=== PATIENT | female | born 1955 | race Caucasian/White ===

== ENCOUNTER → 2023-07-02 09:17 | Outpatient (REF) | payer MEDICARE, SELFPAY | LOC: HWRAD 09:17 | PROVIDERS: ATTENDING PHYSICIAN Family Medicine | DX: I10 Essential (primary) hypertension (principal); I48.0 Paroxysmal atrial fibrillation | CPT/HCPCS: 71046 ==

== ENCOUNTER → 2024-02-17 14:41 | Outpatient (REF) | payer MEDICARE, SELFPAY | LOC: HWEVLT 14:41 | PROVIDERS: ATTENDING PHYSICIAN Radiology Diagnostic Radiology | DX: I83.892 Varicose veins of left lower extremity with other complications (principal) | CPT/HCPCS: 93971 ==

== ENCOUNTER → 2024-03-22 09:40 | Outpatient (REF) | payer MEDICARE, SELFPAY | LOC: HWWDC 09:40 | PROVIDERS: ATTENDING PHYSICIAN Obstetrics & Gynecology; FAMILY PHYSICIAN Family Medicine; REFERRING PHYSICIAN Nurse Practitioner Adult Health | DX: Z12.31 Encounter for screening mammogram for malignant neoplasm of breast (principal) | CPT/HCPCS: 77063; 77067 ==

== ENCOUNTER 2024-09-21 23:19 | Emergency (ER) | payer MEDICARE, SELFPAY ==
[2024-09-21 23:22] VITALS: BP 172/77
[2024-09-21 23:55] LABS: % Eosinophils 1.8 % (0-6); % Immature Granulocytes 0.2 % (0-0.5); % Lymphocytes 44.8 % (20.5-51.1); % Monocytes 5.8 % (1.7-9.3); % Neutrophils 45.4 % (42.2-75.2); Absolute Basophils 0.1 10^3/uL (0-0.2); Absolute Eosinophils 0.1 10^3/uL (0-0.7); Absolute Lymphocytes 2.2 10^3/uL (1.2-3.4); Absolute Monocytes 0.3 10^3/uL (0.1-0.6); Absolute Neutrophils 2.3 10^3/uL (1.4-6.5); Hematocrit 41.3 % (37.0-47.0); Hemoglobin 14.3 g/dL (12.0-16.0); Mean Corp Hgb Conc. 34.6 g/dL (33.0-37.0); Mean Corpuscular Hgb 28.9 pg (27.0-31.0); Mean Corpuscular Volume 83.4 fL (81.0-99.0); Mean Platelet Volume 9.1 fL (7.4-10.4); Nucleated Red Blood Cells % 0 %; Platelet Count 205 10^3/uL (130-400); Red Blood Cell Count 4.95 10^6/uL (4.20-5.40); Red Cell Dist. Width 12.4 % (11.5-14.5)
[2024-09-22 00:19] LABS: Troponin I < 0.012 ng/ml
[2024-09-22 00:21] LABS: ALT (SGPT) 30 U/L (0-35); AST (SGOT) 30 U/L (14-36); Albumin 4.3 g/dl (3.5-5.0); Alkaline Phosphatase 60 U/L (38-126); Blood Urea Nitrogen 22 mg/dl (7-17); Calcium 9.6 mg/dl (8.4-10.2); Carbon Dioxide 31 mmol/L (22-30); Chloride 103 mmol/L (98-107); Glucose 107 mg/dl (70-99); Potassium 4.4 mmol/L (3.5-5.1); Sodium 140 mmol/L (135-145); Total Bilirubin 1.1 mg/dl (0.2-1.3); Total Protein 6.7 g/dl (6.3-8.2); eGFR > 60.00
[2024-09-22 02:51] VITALS: BP 159/79
[2024-09-22 02:53] VITALS: BMI 29.3
[2024-09-22 03:00] VITALS: BP 157/65
[2024-09-22 04:00] VITALS: BP 145/70
--- NOTE | 2024-09-22 04:02 | ED.GENMED ---
History of Present Illness
General
Chief Complaint: Chest Pain
Source: patient and family
Exam Limitations: none
Time Seen by Provider: 09/22/24 03:23
Nursing documentation reviewed up to this point in time: agreed with
History of Present Illness
History of Present Illness:
Pleasant 69-year-old female presents to the emergency with chest wall pain. She states that she has had shingles and the pain is in conjunction with the healing shingles. She states that they are resolving. They are crusted over and has had pain
in the past from the shingles. Patient concerned because the pain went into her left arm. Began around 8 PM last night and resolved by the time she got to the emergency department. Denies fever, chills, current chest pain, or shortness of breath.
Denies abdominal pain.
Past History
Past History
ED Past Medical History: Cancer, HTN and Other (Palpitations, recent diagnosis of ovarian and uterine cancer, PMR)
ED Past Surgical History: Gynecological and Orthopedic
Social History
Tobacco: Non-smoker
Alcohol: Occasional
Drug: None
Personal:
Living: with family
Employment: Not employed
Family History
Family History: Other (Sister with breast cancer); Negative CAD
Review of Systems
Review of Systems
Allergies reviewed?: Yes
All Other Systems: ROS reviewed and negative except as documented in HPI and ROS
Constitutional: Reports no symptoms
EENT: Reports no symptoms
Respiratory: Reports no symptoms
Cardiac: Reports chest pain (Chest wall pain where she had shingles, now resolved and not)
ABD/GI: Reports no symptoms
: Reports no symptoms
Musculoskeletal: Reports muscle pain
Skin: Reports other (Pain)
Neurological: Reports no symptoms
Endocrine: Reports no symptoms
Hematologic/Lymphatic: Reports no symptoms
Psychiatric: Reports no symptoms
Phy Exam
General Physical Exam
General Presentation: well appearing and no apparent distress
General Skin: warm and dry
General Habitus: normal
General Mental: alert
General Hydration: appears well hydrated
ENT Exam
ENT Exam: EOMI, pharynx normal, neck supple and normocephalic
Eye Exam
Eye Exam: PERRL, cornea clear and conjunctiva normal
Cardiovascular Exam
Cardiovascular Exam: regular rate/rhythm, no edema, no murmur and normal peripheral pulses
Pulmonary Exam
Pulmonary Exam: lungs clear, no respiratory distress, no rales, no crackles, no rhonchi, no stridor, no wheezing and no cough
Gastrointestinal Exam
Gastrointestinal Exam: normal bowel sounds, non tender, soft, no organomegaly, no pulsatile mass and non distended
Neurological Exam
Neurological Exam: alert, oriented x3, no motor deficits and speech normal
Musculoskeletal Exam
Musculoskeletal Exam: full ROM and no edema
Skin Exam
Skin Exam: normal color, warm/dry, no rash, no petechia and other (Evidence of well-healing zoster in the T5 or 6 dermatome on the left)
Psychiatric Exam
Psychiatric Exam: normal mood/affect
Scores
Heart Score for Chest Pain Patients
STEMI patient?: No
History: Moderately Suspicious
ECG: Nonspecific Repolarization
Age: >/= 65 years
Risk Factors: 1 or 2 Risk Factors
Troponin: </= Normal Limit
Heart Score for Chest Pain Patients: 5
Heart Score Risk: 20.3% MACE over next 6 weeks
Course
Orders/Labs/Results
Orders:
Orders
09/21/24 23:26
Electrocardiogram (*1) Urgent
Reason for Study: Chest Pain
EKG- Treatment ONCE
09/21/24 23:48
Complete Blood Count/With Diff Urgent
Comprehensive Metabolic Panel Urgent
Troponin I Urgent
Abnormal Lab Results
09/21/24
23:48
Carbon Dioxide 31 H mmol/L
(22-30)
BUN 22 H mg/dl
(7-17)
Glucose 107 H mg/dl
(70-99)
09/21/24 23:48
09/21/24 23:48
Vital Signs
Initial and Last Documented VS:
Initial Vital Signs
Temp Pulse Resp BP Pulse Ox
98.2 F 64 20 172/77 98
09/21/24 23:22 09/21/24 23:22 09/21/24 23:22 09/21/24 23:22 09/21/24 23:22
Last Documented Vital Signs
Temp Pulse Resp BP Pulse Ox
98.2 F 55 17 159/79 98
09/21/24 23:22 09/22/24 02:51 09/22/24 02:51 09/22/24 02:51 09/22/24 02:58
MDM/Problems Addressed
Differential Diagnosis Includes:
Musculoskeletal pain, zoster pain, ACS,
*Critical Care Note
Total Time (30-74mins, 75-104mins- exclusive of procedures): Not Applicable
Update Note
Update Note:
Patient requests that we defer chest x-ray. She will follow-up with family doctor.
ED Attending Note
-
Portions of this chart may have been created with voice recognition software.� Occasional wrong word or��sound alike� substitutions may have occurred due to the inherent limitations of voice recognition software.
Discharge Plan
Departure
Patient Disposition: Home (Routine Discharge)
Date of Disposition: 09/22/24
Time of Disposition: 04:05
Patient with high blood pressure during this ER visit?: Yes
Condition: Good
Discharge Problem:
Chest pain
Instructions: BLOOD PRESSURE, Chest Pain PCP Follow Up
Prescriptions:
No Action
alprazolam 0.25 MG tablet
0.25 mg PO Q8HPRN PRN (Reason: ANXIETY)
diphenhydramine HCl [Banophen] 25 MG capsule
25 mg PO Q4HPRN PRN (Reason: itch/rash) Qty: 30 0RF
Fish Oil 1,200 mg Fish Oil
PO DAILY
B2/B6/Folic/C/D3/Gluta/Astaxan
100 PO DAILY
Vitamin D3
2,000 units PO DAILY
Xarelto 20 mg tablet
20 mg PO QPM Qty: 30 0RF
metoprolol succinate [Toprol XL] 25 mg tablet extended release 24 hr
25 mg PO DAILY Qty: 30 0RF
Referrals:
UNKNOWN - PT DOES,NOT KNOW [Family Provider] -
Osiel Rodriguez, DO [[facility]] -
Activity Restrictions/Additional Instructions:
Thank You for choosing [facility].
It was a pleasure meeting you and taking part in your care. We hope for your continued healing and wellness.
Please read discharge instructions in their entirety. However, they are for general education and may not describe your exact diagnosis at discharge. Information on your ER visit and medical conditions were discussed with you along with appropriate
follow up information...
If indicated, please take your medications as instructed and indicated on discharge paperwork.
Please schedule a follow up appointment as directed. Call to schedule an appointment
Please return to the emergency department with ANY change in, persisting, or worsening of symptoms. If any of your symptoms do not improve, or persist, or become more severe within 6-12 hours, please return to the emergency department for further
care.
Please return to the emergency department if you develop a headache, neck pain/stiffness, fever greater than 100.4F, chest pain, shortness of breath, persistent nausea, vomiting, slurred speech, difficulty walking, numbness/tingling, weakness, signs
of infection or any other symptoms that are worrisome to you.
If you have any questions or concerns please do not hesitate to call the Hospital at or E-mail me directly at [email or web address]
Interventions
Interventions:
*Risk Screen - Suicide Last Done: 09/21/24 23:22
*General Assessment Last Done: 09/22/24 02:53
*Neglect/Abuse Screening Last Done: 09/21/24 23:22
*ED- Fall Risk Assessment Last Done: 09/22/24 02:53
*ED COVID-19 Vaccine History Last Done: 09/22/24 02:53
ED- Cardiac Assessment Last Done: 09/22/24 02:58
Discharge Date and Time
Print Language: PUERTO RICAN
== END 2024-09-22 04:39 | disposition home or self-care (01) ==
LOC: EMR 23:19
PROVIDERS: EMERGENCY PHYSICIAN Student in an Organized Health Care Education/Training Program
DX: R07.89 Other chest pain (principal); I10 Essential (primary) hypertension; C55 Malignant neoplasm of uterus, part unspecified
CPT/HCPCS: 99284; 80053; 84484; 85025; 93005

== ENCOUNTER → 2024-10-18 09:17 | Outpatient (REF) | payer MEDICARE, SELFPAY | LOC: HWRAD 09:17 | PROVIDERS: ATTENDING PHYSICIAN Family Medicine; REFERRING PHYSICIAN Nurse Practitioner Adult Health | DX: Z78.0 Asymptomatic menopausal state (principal) | CPT/HCPCS: 77080 ==

== ENCOUNTER → 2024-10-20 08:16 | Outpatient (REF) | payer MEDICARE, SELFPAY | LOC: RCS 08:16 | PROVIDERS: ATTENDING PHYSICIAN Internal Medicine Cardiovascular Disease; FAMILY PHYSICIAN Family Medicine | DX: R07.2 Precordial pain (principal) | CPT/HCPCS: 93017; 93350 ==

== ENCOUNTER → 2024-12-23 11:22 | Outpatient (REF) | payer MEDICARE, SELFPAY | LOC: HWRAD 11:22 | PROVIDERS: ATTENDING PHYSICIAN Family Medicine | DX: E04.9 Nontoxic goiter, unspecified (principal) | CPT/HCPCS: 76536 ==

== ENCOUNTER → 2025-01-05 07:16 | Outpatient (REF) | payer MEDICARE, SELFPAY | LOC: HWRAD 07:16 | PROVIDERS: ATTENDING PHYSICIAN Family Medicine | DX: R74.01 Elevation of levels of liver transaminase levels (principal) | CPT/HCPCS: 76700 ==

== ENCOUNTER → 2025-03-23 09:32 | Outpatient (REF) | payer MEDICARE, SELFPAY | LOC: HWWDC 09:32 | PROVIDERS: ATTENDING PHYSICIAN Obstetrics & Gynecology; FAMILY PHYSICIAN Family Medicine | DX: Z12.31 Encounter for screening mammogram for malignant neoplasm of breast (principal) | CPT/HCPCS: 77063; 77067 ==